=== PATIENT | male | born 1950 | race Caucasian/White ===

== ENCOUNTER 2016-11-16 18:10 | Emergency (ER) | payer MEDICARE, OTHER ==
--- NOTE | 2016-11-16 18:22 | EDM.PDOC ---
ED HPI GENERAL MEDICAL PROBLEM - General Chief Complaint: Lower Extremity Injury/Pain Stated Complaint: BRUISE ON LEG; HISTORY OF BLOODCLOT Time Seen by Provider: 11/16/16 18:25 Source of Information: Reports: Patient History Limitations: Reports: No Limitations - History of Present Illness INITIAL COMMENTS - FREE TEXT/NARRATIVE: 66-year-old male presents to the ED for evaluation of painful swelling along the greater saphenous vein distribution in his left mid thigh. He also has a 2 cm ecchymotic area mid thigh and he doesn't know how he got this. Of note the patient is at a previous DVT in his left leg felt to be caused from prolonged driving in a motor vehicle eye from [facility] to [place]. He was on Coumadin therefore for a period of about 6 weeks 2 years ago. At present he states he has pain only in the left medial thigh and he can feel nodularity along the distribution of the vein. He doesn't feel his left foot is any more swollen than it was normally. It is painful for his pants to touch the inner aspect of his left thigh. Denies any shortness of breath or pleuritic chest pain. No hemoptysis. Not known to have a PE with his last DVT. Onset: Today (Noted today.) Onset Date: 11/16/16 Onset Time: 16:00 Duration: Minutes: Location: Reports: Lower Extremity, Left (Left mid medial thigh) Quality: Reports: Ache, Throbbing, Other Severity: Moderate (Tender to touch.) Improves with: Reports: None Worsens with: Reports: Other Context: Reports: Other (Noted bruise in this area once he started exploring wire was sore. Unclear how the Chema developed). Denies: Activity (Walking especially with his pants rubbing on the area.), Exercise, Lifting, Sick Contact , Trauma Associated Symptoms: Reports: No Other Symptoms Treatments VINYL CUTTER: Reports: Other (see below) (None.) - Related Data Allergies Allergy/AdvReac Type Severity Reaction Status Date / Time alcohol Allergy Liver Verified 11/16/16 18:21 Problems Home Meds: Home Meds Aspirin [Halfprin] 81 mg PO DAILY 10/08/13 [History] atorvaSTATin [Lipitor] 10 mg PO DAILY 10/08/13 [History] Ubidecarenone [Co Q-10] 10 mg PO DAILY 03/27/14 [History] Ascorbic Acid [Vitamin C] 500 mg PO DAILY 05/12/14 [History] Calcium Carbonate/Vitamin D3 [Calcium 500-Vit D3 200 Tablet] 1 tab PO DAILY [History] Glucosamine Sulfate 2KCl [Glucosamine] 1 gm PO DAILY 05/12/14 [History] Hydrocodone/Acetaminophen [Dakota 5-325] 2 tab PO Q4H PRN #30 tablet 05/15/14 [Rx ] Past Medical History Cardiovascular History: Reports: Blood Clots/VTE/DVT (Left leg in the past.) Musculoskeletal History: Reports: Arthritis, Back Pain, Chronic, Osteoarthritis Social & Family History - Tobacco Use Smoking Status *Q: Never Smoker Years of Tobacco use: 7 Used Tobacco, but Quit: Yes Month Tobacco Last Used: 1976 Second Hand Smoke Exposure: No - Alcohol Use Days Per Week of Alcohol Use: 0 Number of Drinks Per Day: 0 Total Drinks Per Week: 0 - Recreational Drug Use Recreational Drug Use: No Drug Use in Last 12 Months: No - Living Situation & Occupation Living situation: Reports: Occupation: Employed Review of Systems - Review of Systems Review Of Systems: See Below Constitutional: Reports: No Symptoms Eyes: Reports: No Symptoms Ears: Reports: No Symptoms Nose: Reports: No Symptoms Mouth/Throat: Reports: No Symptoms Respiratory: Reports: No Symptoms Cardiovascular: Reports: No Symptoms GI/Abdominal: Reports: No Symptoms Genitourinary: Reports: No Symptoms Musculoskeletal: Reports: Other (Pain in her aspect of left thigh) Skin: Reports: Other (Ecchymoses) Neurological: Reports: No Symptoms ( 2 cm or 2.5 cm in diameter medial mid thigh of unclear etiology) Psychiatric: Reports: No Symptoms ED EXAM, GENERAL - Physical Exam Exam: See Below Exam Limited By: No Limitations General Appearance: Alert, WD/WN, No Apparent Distress, Anxious (Mildly anxious. ) Respiratory/Chest: No Respiratory Distress, Lungs Clear, Normal Breath Sounds, Chest Non-Tender Cardiovascular: Normal Peripheral Pulses, Regular Rate, Rhythm, No Edema, No Gallop, No Murmur Peripheral Pulses: 3+: Posterior Tibial (L), Posterior Tibial (R), Dorsalis Pedis (L), Dorsalis Pedis (R) GI/Abdominal: Normal Bowel Sounds, Soft, Non-Tender, No Organomegaly, No Distention Extremities: Other (Examination was essentially limited to the left lower extremity. He has a palpable greater saphenous vein along the medial aspect of his thigh. There is a 2.5 cm diameter ecchymotic area which appears to be a day or 2 old mid thigh. He's not sure how he obtained this. There is tender to touch. He's had previous DVT in the leg starting in the popliteal fossa and involving the peroneal and anterior tibial veins.) Neurological: Alert, Oriented (there was no inguinal adenopathy or tenderness.) , CN II-XII Intact, Normal Cognition, Normal Gait Psychiatric: Normal Affect, Normal Mood Skin Exam: Warm, Dry, Intact Course - Vital Signs Last Recorded V/S: Last Vital Signs Temp 36.1 C 11/16/16 18:25 Pulse 55 L 11/16/16 18:25 Resp 18 11/16/16 18:25 BP 150/103 H 11/16/16 18:25 Pulse Ox 100 11/16/16 18:25 - Orders/Labs/Meds Labs: Laboratory Tests 11/16/16 11/16/16 11/16/16 Range/Units 18:40 18:40 18:40 WBC 5.27 (4.23-9.07) K/mm3 RBC 5.01 (4.63-6.08) M/mm3 Hgb 15.4 (13.7-17.5) gm/L Hct 45.0 (40.1-51.0) % MCV 89.8 (79.0-92.2) fl MCH 30.7 (25.7-32.2) pg MCHC 34.2 (32.2-35.5) g/dl RDW Std Deviation 41.2 (35.1-43.9) fL Plt Count 267 (163-337) K/mm3 MPV 9.4 (9.4-12.3) fl Neut % (Auto) 59.9 (34.0-67.9) % Lymph % (Auto) 26.0 (21.8-53.1) % [place] % (Auto) 10.1 (5.3-12.2) % Eos % (Auto) 3.4 (0.8-7.0) Baso % (Auto) 0.4 (0.1-1.2) % Neut # (Auto) 3.16 (1.78-5.38) K/mm3 Lymph # (Auto) 1.37 (1.32-3.57) K/mm3 [place] # (Auto) 0.53 (0.30-0.82) K/mm3 Eos # (Auto) 0.18 (0.04-0.54) K/mm3 Baso # (Auto) 0.02 (0.01-0.08) K/mm3 PT 10.7 (8.0-13.0) SECONDS INR 0.98 D-Dimer, Quantitative 0.49 (0.19-0.59) mg/L - Radiology Interpretation Free Text/Narrative:: 66-year-old male presents the ED for evaluation of painful swelling along the distribution of the greater saphenous vein medial left thigh. Of note he had a previous DVT popliteal fossa and calf 2 years ago in the left thigh and was treated with a 6 week course of Coumadin. The thought was that he will want him driving with the leg in the same position from [facility] to [place] for work cause this DVT. He's not sure if any genetic studies were done at that time. Today he couldn't feel the soreness on the medial thigh against is patent leg and one elective Dilaudid 2.5 cm ecchymotic area mid thigh. Also pain along the distribution of the greater saphenous vein. He has some chronic edema in both lower extremities but little worse in the left as compared to the right. Good pulses to both feet. Plan routine labs to include PT/INR and a d-dimer. Doppler ultrasound to be done on the left lower extremity. - Re-Assessments/Exams Free Text/Narrative Re-Assessment/Exam: 11/16/16 19:36 lab work shows a normal white count at 5.27 hemoglobin is 15.4 hematocrit is 45.0. Platelets 267,000. PT is 10.7 INR 0.98 D dimer is normal at 0.49. Ultrasound of the leg has been completed on my review I do not see anything worrisome. Dr. Sawant is also read the ultrasound and did not find anything worrisome is particularly in the greater saphenous vein. He can see evidence of irregularity identified within the popliteal and peroneal vein due to previous thrombosis. She was therefore reassured at this time that no evidence of a DVT exists. Unclear how he got the bruise on the medial aspect of his thigh Departure - Departure Time of Disposition: 20:01 Disposition: Home, Self-Care 01 Condition: Fair Clinical Impression: Contusion of left thigh, initial encounter - Discharge Information Referrals: Justin Stover MD [Primary Care Provider] - Forms: ED Department Discharge Additional Instructions: Evaluation in the emergency room today in regards to a bruise on the medial aspect of your left thigh with some erythema and nodularity along the distribution of the greater saphenous vein. History of previous left-sided deep venous thrombosis in the lower extremity below the knee and popliteal fossa behind the knee. A repeat ultrasound of the leg was done today to rule out any new clot formation. None was found there is evidence of irregularity of the prado of the popliteal and peroneal vein low the knee on the left side which is due to previous thrombus which has recannulized. In particular the greater saphenous vein was stated and no clot was found within it. This supports lab test to which revealed a d-dimer which is a measuring stick for how much we are clotting or breaking down clot was normal as well. Therefore at this time no further treatment is advised or required.
[2016-11-16 18:28] VITALS: BP 150/103
--- NOTE | 2016-11-16 19:52 | US ---
Left lower extremity deep venous ultrasound: Duplex and color flow imaging was obtained of the left common femoral, proximal greater saphenous, superficial femoral, popliteal, posterior tibial and peroneal veins. Right common femoral vein was also evaluated. Findings: Normal phasic flow, augmentation and compression is seen. There is some wall irregularity identified within the popliteal and peroneal vein which is most likely due to previous thrombus which has recannulized. Impression: 1. No evidence of deep venous thrombosis is seen within the left lower extremity or within the right common femoral vein. Diagnostic code #2
== END 2016-11-16 20:07 | disposition home or self-care (01) ==
LOC: JD.ED 18:10
DX: S70.12XA Contusion of left thigh, initial encounter (principal); Z79.82 Long term (current) use of aspirin; Z79.899 Other long term (current) drug therapy; X50.1XXA Overexertion from prolonged static or awkward postures, initial encounter
CPT/HCPCS: 36415; 85025; 85379; 85610; 93971-26-LT; 93971-LT; 99284; 99284-25

== ENCOUNTER 2018-10-24 08:49 | Emergency (ER) | payer MEDICARE, OTHER ==
--- NOTE | 2018-10-24 09:36 | EDM.PDOC ---
ED HPI GENERAL MEDICAL PROBLEM - General Chief Complaint: Chest Pain Stated Complaint: CHEST PAIN AND DIZZY Time Seen by Provider: 10/24/18 09:25 - History of Present Illness INITIAL COMMENTS - FREE TEXT/NARRATIVE: 68-year-old male presents emergency room with chest discomfort but mostly dizziness. Yesterday the patient has had 2 brief twinges less than a second each of a sharp chest pain at the base of his chest. His biggest complaint is dizziness that is aggravated by change of position and occasionally turning but he cannot recall which way makes it worse. He does not have coronary artery history however is treated for hyperlipidemia he's had a blood clot in his leg no PE he took Coumadin for this. He used to take aspirin but stopped this because he had bloody noses related to this on a frequent basis. - Related Data Allergies Allergy/AdvReac Type Severity Reaction Status Date / Time alcohol Allergy Liver Verified 10/24/18 09:02 Problems Home Meds: Home Meds atorvaSTATin [Lipitor] 10 mg PO DAILY 10/08/13 [History] Ubidecarenone [Co Q-10] 10 mg PO DAILY 03/27/14 [History] Ascorbic Acid [Vitamin C] 500 mg PO DAILY 05/12/14 [History] Calcium Carbonate/Vitamin D3 [Calcium 500-Vit D3 200 Tablet] 1 tab PO DAILY [History] Glucosamine Sulfate 2KCl [Glucosamine] 1 gm PO DAILY 05/12/14 [History] Vitamin A Palmitate [Vitamin A] 1 tab PO DAILY 10/24/18 [History] Past Medical History HEENT History: Reports: Other (See Below) Other HEENT History: recurrent otitis media Cardiovascular History: Reports: Blood Clots/VTE/DVT, High Cholesterol Genitourinary History: Reports: BPH Musculoskeletal History: Reports: Arthritis, Back Pain, Chronic, Osteoarthritis Psychiatric History: Reports: Anxiety - Past Surgical History GI Surgical History: Reports: Appendectomy, Hernia, Abdominal Male Surgical History: Reports: Prostate Biopsy Musculoskeletal Surgical History: Reports: Arthroscopic Knee, Shoulder Surgery, Other (See Below) Other Musculoskeletal Surgeries/Procedures:: elbow surgery Oncologic Surgical History: Reports: Biopsy of Breast, Mastectomy Social & Family History - Family History Family Medical History: Noncontributory - Tobacco Use Smoking Status *Q: Never Smoker Second Hand Smoke Exposure: No - Caffeine Use Caffeine Use: Reports: None - Recreational Drug Use Recreational Drug Use: No - Living Situation & Occupation Living situation: Reports: Occupation: Employed ED ROS GENERAL - Review of Systems Review Of Systems: See Below Constitutional: Reports: No Symptoms. Denies: Fever, Chills HEENT: Reports: No Symptoms. Denies: Ear Discharge, Ear Pain, Rhinitis, Sinus Problem Respiratory: Reports: No Symptoms Cardiovascular: Reports: Other (Unusual chest pain as described above) GI/Abdominal: Reports: No Symptoms : Reports: No Symptoms Neurological: Reports: No Symptoms ED EXAM, GENERAL - Physical Exam Exam: See Below Exam Limited By: No Limitations General Appearance: Alert, No Apparent Distress Eye Exam: Bilateral Eye: Normal Inspection, PERRL Ears: Normal External Exam, Normal Canal, Hearing Grossly Normal, Normal TMs Nose: Normal Inspection, Normal Mucosa, No Blood Throat/Mouth: Normal Inspection, Normal Lips, Normal Teeth, Normal Gums, Normal Oropharynx, Normal Voice, No Airway Compromise, Other (Provocative measures do not make the dizziness come or go other than when he did stand up for his neuro exam he had brief lightheadedness) Head: Atraumatic, Normocephalic Neck: Normal Inspection, Supple, Non-Tender, Full Range of Motion. No: Lymphadenopathy (L), Lymphadenopathy (R) Respiratory/Chest: No Respiratory Distress, Lungs Clear, Normal Breath Sounds Cardiovascular: Normal Peripheral Pulses, Regular Rate, Rhythm, No Edema GI/Abdominal: Normal Bowel Sounds, Soft, Non-Tender, No Organomegaly, No Distention, No Abnormal Bruit, No Mass Neurological: Other (Cranial nerves II through XII grossly intact all muscle groups the upper lower extremities are equal and appropriate bilaterally deep tendon reflexes are equal and appropriate at brachial radialis and patella tendons bilaterally cerebellar testing is entirely within normal limits the patient had brief lightheadedness when he did stand up) Psychiatric: Normal Affect, Normal Mood Skin Exam: Warm, Dry, Intact, Normal Color Lymphatic: No Adenopathy Course - Vital Signs Last Recorded V/S: Last Vital Signs Temp 36.2 C 10/24/18 08:58 Pulse 67 10/24/18 08:58 Resp 16 10/24/18 08:58 BP 154/80 H 10/24/18 08:58 Pulse Ox 96 10/24/18 08:58 - Orders/Labs/Meds Orders: Active Orders 24 hr Category Date Time Status EKG Documentation Completion [RC] ASDIRECTED Care 10/24/18 09:33 Active EKG Documentation Completion [RC] STAT Care 10/24/18 12:04 Active EKG 12 Lead [EK] Stat Ther 10/24/18 09:03 Ordered Labs: Laboratory Tests 10/24/18 10/24/18 Range/Units 12:37 12:37 WBC 6.44 (4.23-9.07) K/mm3 RBC 5.20 (4.63-6.08) M/mm3 Hgb 16.0 (13.7-17.5) gm/L Hct 46.7 (40.1-51.0) % MCV 89.8 (79.0-92.2) fl MCH 30.8 (25.7-32.2) pg MCHC 34.3 (32.2-35.5) g/dl RDW Std Deviation 41.6 (35.1-43.9) fL Plt Count 221 (163-337) K/mm3 MPV 9.1 L (9.4-12.3) fl Neutrophils % (Manual) 74 H (40-60) % Band Neutrophils % 0 (0-10) % Lymphocytes % (Manual) 21 (20-40) % Atypical Lymphs % 0 % Monocytes % (Manual) 2 (2-10) % Eosinophils % (Manual) 3 (0.8-7.0) % Basophils % (Manual) 0 L (0.2-1.2) Platelet Estimate Adequate RBC Morph Comment Normal Sodium 144 (136-145) mEq/L Potassium 4.1 (3.5-5.1) mEq/L Chloride 108 H (98-107) mEq/L Carbon Dioxide 31 (21-32) mEq/L Anion Gap 9.1 (5-15) BUN 19 H (7-18) mg/dL Creatinine 1.1 (0.7-1.3) mg/dL Est Cr Clr Drug Dosing 68.59 mL/min Estimated GFR (MDRD) > 60 (>60) mL/min BUN/Creatinine Ratio 17.3 (14-18) Glucose 99 (80-115) mg/dL Calcium 9.2 (8.5-10.1) mg/dL Total Bilirubin 0.7 (0.2-1.0) mg/dL AST 22 (15-37) U/L ALT 42 (16-63) U/L Alkaline Phosphatase 48 (46-116) U/L Troponin I < 0.017 (0.00-0.056) ng/mL Total Protein 7.2 (6.4-8.2) g/dl Albumin 3.7 (3.4-5.0) g/dl Globulin 3.5 gm/dL Albumin/Globulin Ratio 1.1 (1-2) - Re-Assessments/Exams Free Text/Narrative Re-Assessment/Exam: Anticipating discharged when double check the patient and now he's developed some neck tightness and discomfort just at rest we'll check a troponin CBC CMP and repeat EKG 10/24/18 13:28 Labs look good the patient would like to go home she had a follow-up EKG shows a sinus bradycardia rate 50 patient states this is pretty normal for him this shows no obvious ischemia.. Labs negative troponin and labs are otherwise unrevealing. With his mild bradycardia discussed maybe checking a Holter but the patient is convinced this is normal for him. Departure - Departure Time of Disposition: 13:31 Disposition: Home, Self-Care 01 Clinical Impression: Chest pain - Discharge Information Referrals: Justin Stover MD [Primary Care Provider] - Forms: ED Department Discharge Additional Instructions: Return to the emergency room with any questions problems worsening symptoms. Follow-up with your regular physician early this next week. - My Orders Last 24 Hours: My Active Orders 10/24/18 09:03 EKG 12 Lead [EK] Stat 10/24/18 09:33 EKG Documentation Completion [RC] ASDIRECTED 10/24/18 12:04 EKG Documentation Completion [RC] STAT - Assessment/Plan Last 24 Hours: My Active Orders 10/24/18 09:03 EKG 12 Lead [EK] Stat 10/24/18 09:33 EKG Documentation Completion [RC] ASDIRECTED 10/24/18 12:04 EKG Documentation Completion [RC] STAT
[2018-10-24 13:59] VITALS: BP 142/86
== END 2018-10-24 14:06 | disposition home or self-care (01) ==
LOC: JD.ED 08:49
DX: R07.9 Chest pain, unspecified (principal); E78.00 Pure hypercholesterolemia, unspecified; Z86.718 Personal history of other venous thrombosis and embolism; Z79.01 Long term (current) use of anticoagulants; Z91.048 Other nonmedicinal substance allergy status
CPT/HCPCS: 36415; 80053; 84484; 85007; 85027; 93005; 93010; 99283; 99284-25

== ENCOUNTER 2020-03-10 16:37 | Emergency (ER) | payer MEDICARE, OTHER ==
[2020-03-10 16:54] VITALS: BP 155/81; PULSE 56
--- NOTE | 2020-03-10 17:19 | EDM.PDOC ---
ED HPI GENERAL MEDICAL PROBLEM - General Chief Complaint: Lower Extremity Injury/Pain Stated Complaint: PAIN BEHIND RT KNEE HX OF BLOOD CLOTS Time Seen by Provider: 03/10/20 16:42 Source of Information: Reports: Patient, RN Notes Reviewed History Limitations: Reports: No Limitations - History of Present Illness INITIAL COMMENTS - FREE TEXT/NARRATIVE: Patient is a 69-year-old male presenting to the emergency department with complaints of right popliteal knee pain. He states he was on his feet for an extended period of time yesterday. He started having right knee pain early this morning. This afternoon he had some tingling which is of concern to him. He does have a history of DVT in the left lower extremity approximately 10 years ago. He is not currently on blood thinners. Denies any chest pain or shortness of breath. Right Middle Leg Pain Score (Numeric/FACES): 5 - Related Data Allergies Allergy/AdvReac Type Severity Reaction Status Date / Time alcohol Allergy Liver Verified 03/10/20 16:47 Problems Home Meds: Home Meds atorvaSTATin [Lipitor] 10 mg PO DAILY 10/08/13 [History] Ubidecarenone [Co Q-10] 10 mg PO DAILY 03/27/14 [History] Ascorbic Acid [Vitamin C] 500 mg PO DAILY 05/12/14 [History] Calcium Carbonate/Vitamin D3 [Calcium 500-Vit D3 200 Tablet] 1 tab PO DAILY 05/12/14 [History] Glucosamine Sulfate Dipot Chlr [Glucosamine] 1 gm PO DAILY 05/12/14 [History] Vitamin A Palmitate [Vitamin A] 1 tab PO DAILY 10/24/18 [History] ALPRAZolam [Alprazolam] 0.5 mg PO BEDTIME PRN 03/10/20 [History] Rivaroxaban [Xarelto] 1 each PO ASDIRECTED #1 tab.ds.pk 03/10/20 [Rx] Selenium 0 mg PO DAILY 03/10/20 [History] Silvestrol 1 cap PO DAILY 03/10/20 [History] Past Medical History HEENT History: Reports: Otitis Media, Other (See Below) Other HEENT History: recurrent otitis media Cardiovascular History: Reports: Blood Clots/VTE/DVT, High Cholesterol, Other (See Below) Other Cardiovascular History: palpitations, wore Holter this past week. Respiratory History: Reports: Bronchitis, Recurrent Genitourinary History: Reports: BPH Musculoskeletal History: Reports: Arthritis, Back Pain, Chronic, Osteoarthritis Psychiatric History: Reports: Anxiety, Depression - Infectious Disease History Infectious Disease History: Reports: Chicken Pox, Measles, Mumps - Past Surgical History GI Surgical History: Reports: Appendectomy, Hernia, Abdominal Male Surgical History: Reports: Prostate Biopsy Musculoskeletal Surgical History: Reports: Arthroscopic Knee, Shoulder Surgery, Other (See Below) Other Musculoskeletal Surgeries/Procedures:: elbow surgery Oncologic Surgical History: Reports: Biopsy of Breast, Mastectomy Other Oncologic Surgeries/Procedures: benign breast tissue. Social & Family History - Family History Family Medical History: No Pertinent Family History - Tobacco Use Tobacco Use Status *Q: Never Tobacco User Second Hand Smoke Exposure: No - Caffeine Use Caffeine Use: Reports: None - Recreational Drug Use Recreational Drug Use: No - Living Situation & Occupation Living situation: Reports: Occupation: Employed Review of Systems - Review of Systems Review Of Systems: Comprehensive ROS is negative, except as noted in HPI. ED EXAM, GENERAL - Physical Exam Exam: See Below Exam Limited By: No Limitations General Appearance: Alert, WD/WN, No Apparent Distress Respiratory/Chest: No Respiratory Distress, Lungs Clear, Normal Breath Sounds, No Accessory Muscle Use, Chest Non-Tender Cardiovascular: Normal Peripheral Pulses, Regular Rate, Rhythm, No Edema, No Gallop, No JVD, No Murmur, No Rub Extremities: Other (Redness to palpation of the distal aspect of the right popliteal fossa. No redness, warmth, or swelling present. Positive Homans' sign.) Course - Vital Signs Last Recorded V/S: Last Vital Signs Temp 96.9 F 03/10/20 16:40 Pulse 56 L 03/10/20 16:40 Resp 16 03/10/20 16:40 BP 155/81 H 03/10/20 16:40 Pulse Ox 98 03/10/20 16:40 - Orders/Labs/Meds Meds: Medications Discontinued Medications Generic Name Dose Route Start Last Admin Trade Name Freq PRN Reason Stop Dose Admin Rivaroxaban 15 mg 03/10/20 18:30 03/10/20 18:42 Xarelto PO 03/10/20 18:31 15 mg ONETIME ONE Administration - Re-Assessments/Exams Free Text/Narrative Re-Assessment/Exam: Patient is a 69-year-old male presenting to the emergency department with complaints of right popliteal pain. States he was on his feet for extended period of time yesterday. This morning he developed pain and later this afternoon he noticed tingling in the area. He has a history of DVT so he is concerned that he could possibly have a blood clot. He is not currently on blood thinners. On exam, patient has tenderness to palpation of the distal aspect of the right popliteal fossa. There is no redness, warmth, or swelling. Positive Homans' sign. I ordered a venous Doppler ultrasound of the right lower extremity 03/10/20 18:31 Has Doppler ultrasound of the right lower extremity shows findings felt alysia tible with a nonobstructing clot within the posterior tibial vein. There is no additional deep venous thrombosis seen. We will start the patient on Xarelto. Discussed risk of bleeding and when to seek treatment. We will have him follow- up with his primary care provider next week. Discharge instructions as documented. Departure - Departure Time of Disposition: 18:31 Disposition: Home, Self-Care 01 Condition: Good Clinical Impression: DVT (deep venous thrombosis) Qualifiers: DVT location: lower extremity Affected thrombotic vein of extremity: tibial Chronicity: acute Laterality: right Qualified Code(s): I82.441 - Acute embolism and thrombosis of right tibial vein - Discharge Information *PRESCRIPTION DRUG MONITORING PROGRAM REVIEWED*: No *COPY OF PRESCRIPTION DRUG MONITORING REPORT IN PATIENT ROB: No Prescriptions: Rivaroxaban [Xarelto] 1 each PO ASDIRECTED #1 tab.ds.pk Instructions: Deep Vein Thrombosis Referrals: Justin Stover MD [Primary Care Provider] - Forms: ED Department Discharge Additional Instructions: You were seen in the emergency department today for pain and tingling behind your right knee. Ultrasound was completed and shows a nonobstructing blood clot within your posterior tibial vein. You have been started on Xarelto which is a blood thinner. Take these medications as prescribed. You received your first dose of medication in the emergency department tonight, therefore do not start taking your home prescription until tomorrow. Be aware of your risk of bleeding. If you should fall and have any head injuries, or develop nosebleed or any other bleeding which you cannot control, return to the emergency department. Recommend follow-up with your primary care provider next week so th at he may provide ongoing monitoring of your medication. If you should develop sudden onset of chest pain or shortness of breath, you should return to the emergency department. Return to ER for any new or worsening symptoms of concern. Sepsis Event Note (ED) - Evaluation Sepsis Screening Result: No Definite Risk - Focused Exam Vital Signs: Vital Signs Temp Pulse Resp BP Pulse Ox 03/10/20 16:40 96.9 F 56 L 16 155/81 H 98
--- NOTE | 2020-03-10 18:19 | US ---
Right lower extremity deep venous ultrasound: Duplex and color Doppler evaluation was obtained on the right common femoral, proximal greater saphenous, superficial femoral, popliteal, posterior tibial and peroneal veins. Left common femoral vein was also evaluated. Findings: Posterior tibial vein shows lack of complete compression. There is incomplete clot within the posterior tibial vein which is felt to be present. Clot does not extend into the popliteal vein. Other deep veins show normal phasic flow, augmentation and compression. Impression: 1. Findings felt compatible with nonobstructing clot within the posterior tibial vein. 2. No additional deep venous thrombosis is seen. Diagnostic code #5
[2020-03-10] MEDS ORDERED: Rivaroxaban 15 MG Tab PO ONE (18:30)
== END 2020-03-10 18:47 | disposition home or self-care (01) ==
LOC: JD.ED 16:37
DX: I82.441 Acute embolism and thrombosis of right tibial vein (principal); E78.00 Pure hypercholesterolemia, unspecified; Z91.048 Other nonmedicinal substance allergy status; Z79.899 Other long term (current) drug therapy
CPT/HCPCS: 93971; 99283; A9270

== ENCOUNTER 2020-03-12 12:49 | Emergency (ER) | payer MEDICARE, OTHER ==
[2020-03-12 12:59] VITALS: BP 149/76; PULSE 54
[2020-03-12] MEDS ORDERED: Sodium Chloride 0.9% 10 ML Syringe FLUSH PRN (13:19)
--- NOTE | 2020-03-12 13:24 | EDM.PDOC ---
ED HPI GENERAL MEDICAL PROBLEM - General Chief Complaint: Cardiovascular Problem Stated Complaint: HEART PALPITATIONS Time Seen by Provider: 03/12/20 13:12 Source of Information: Reports: Patient History Limitations: Reports: No Limitations - History of Present Illness INITIAL COMMENTS - FREE TEXT/NARRATIVE: 69-year-old male presents to the ED with chief complaint of recurrent p alpitations. He is well aware of the thud against his chest wall suggesting that these are premature atrial contractions with a compensatory pause. This is been going on now for the last month or so. He had a Holter monitor placed 2 days last week but he does not think he had many palpitations while he was on the monitor. Symptoms started once again yesterday. He is on numerous numerous herbal supplements of which he did not bring to the hospital. He denies any recent changes to any of his medications from his doctor. The palpitations do not seem to cause any chest pain, dyspnea, dizziness or lightheadedness. Because of a uncomfortable"thud "in his chest wall. Of note the patient is on Xarelto 20 mg once daily. Unclear reason for this. Onset: Other (Minimally particularly worse over the last 2 days but has had palpitations for the better part of a month) Onset Date: 02/10/20 Duration: Week(s):, Intermittent, Waxing/Waning Location: Reports: Chest (Potation's with she can feel in his chest.) Quality: Reports: Other (Denies any chest pain.) Severity: Mild Improves with: Reports: None Worsens with: Reports: None Context: Reports: Other (Spontaneous occurrence.). 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 (see below) (.) - Related Data Allergies Allergy/AdvReac Type Severity Reaction Status Date / Time alcohol Allergy Liver Verified 03/12/20 13:00 Problems Home Meds: Home Meds atorvaSTATin [Lipitor] 10 mg PO DAILY 10/08/13 [History] Ubidecarenone [Co Q-10] 10 mg PO DAILY 03/27/14 [History] Ascorbic Acid [Vitamin C] 500 mg PO DAILY 05/12/14 [History] Calcium Carbonate/Vitamin D3 [Calcium 500-Vit D3 200 Tablet] 1 tab PO DAILY 05/12/14 [History] Glucosamine Sulfate Dipot Chlr [Glucosamine] 1 gm PO DAILY 05/12/14 [History] Vitamin A Palmitate [Vitamin A] 1 tab PO DAILY 10/24/18 [History] ALPRAZolam [Alprazolam] 0.5 mg PO BEDTIME PRN 03/10/20 [History] Rivaroxaban [Xarelto] 1 each PO ASDIRECTED #1 tab.ds.pk 03/10/20 [Rx] Selenium 0 mg PO DAILY 03/10/20 [History] Silvestrol 1 cap PO DAILY 03/10/20 [History] Past Medical History HEENT History: Reports: Otitis Media, Other (See Below) Other HEENT History: recurrent otitis media Cardiovascular History: Reports: Blood Clots/VTE/DVT, High Cholesterol, Other (See Below) Other Cardiovascular History: palpitations, wore Holter this past week. Respiratory History: Reports: Bronchitis, Recurrent Genitourinary History: Reports: BPH Musculoskeletal History: Reports: Arthritis, Back Pain, Chronic, Osteoarthritis Psychiatric History: Reports: Anxiety, Depression Other Hematologic History: Previous DVT left calf. Recently diagnosed with a DVT in his right lower extremity March 10, 2020 and restarted on Xarelto 15 mg twice daily for the next 3 weeks and then switch to 20 mg daily. Is unclear whether genetic studies were ordered. - Infectious Disease History Infectious Disease History: Reports: Chicken Pox, Measles, Mumps - Past Surgical History GI Surgical History: Reports: Appendectomy, Hernia, Abdominal, Other (See Below) (She had an appendectomy and an umbilical hernia repair at the same setting.) Male Surgical History: Reports: Prostate Biopsy Musculoskeletal Surgical History: Reports: Arthroscopic Knee, Shoulder Surgery, Other (See Below) Other Musculoskeletal Surgeries/Procedures:: elbow surgery Oncologic Surgical History: Reports: Biopsy of Breast, Mastectomy Other Oncologic Surgeries/Procedures: benign breast tissue. Social & Family History - Family History Family Medical History: No Pertinent Family History - Tobacco Use Tobacco Use Status *Q: Former Tobacco User (Did 1977. Smoked 1 pack a day for about 7 years) Tobacco Use Within Last Twelve Months: Cigarettes - Caffeine Use Caffeine Use: Reports: None - Recreational Drug Use Recreational Drug Use: No - Living Situation & Occupation Living situation: Reports: Occupation: Employed ED ROS GENERAL - Review of Systems Review Of Systems: See Below Constitutional: Denies: Fever, Chills, Malaise, Weakness, Fatigue, Decreased Appetite, Weight Loss HEENT: Reports: Glasses Respiratory: Reports: No Symptoms Cardiovascular: Reports: Palpitations. Denies: Chest Pain, Blood Pressure Problem, Claudication, Dyspnea on Exertion, Edema, Lightheadedness, Orthopnea ED EXAM, GENERAL - Physical Exam Exam: See Below Exam Limited By: No Limitations General Appearance: Alert, WD/WN, Anxious (Mildly anxious), Other (Temperature is 36.5 heart rate was sinus bradycardia 54 to 57/min. Respiratory was 14 with O2 sats of 95% room air BP 149/76) Eye Exam: Bilateral Eye: Normal Inspection (No scleral icterus or blepharal pallor.), PERRL Ears: Normal TMs Throat/Mouth: Normal Inspection, Normal Lips, Normal Teeth, Normal Gums, Normal Oropharynx Head: Atraumatic, Normocephalic Neck: Normal Inspection, Supple, Non-Tender, Full Range of Motion. No: Carotid Bruit, Lymphadenopathy (L), Lymphadenopathy (R), Thyromegaly Respiratory/Chest: No Respiratory Distress, Lungs Clear, Normal Breath Sounds, No Accessory Muscle Use, Rales (New fine rales left lung base that clear with deep inspiration. This suggest atelectasis.) Cardiovascular: Normal Peripheral Pulses, Regular Rate, Rhythm, No Edema, No Gallop, No JVD, No Murmur, No Rub Peripheral Pulses: 2+: Carotid (L), Carotid (R), Posterior Tibial (L), Posterior Tibial (R), Dorsalis Pedis (L), Dorsalis Pedis (R) GI/Abdominal: Normal Bowel Sounds, Soft, Non-Tender, No Organomegaly, No Mass, Pelvis Stable, Rebound, Other (Minutes of previous umbilical hernia raphe.) Back Exam: Normal Inspection, Full Range of Motion. No: CVA Tenderness (L), CVA Tenderness (R) Extremities: Normal Inspection, Normal Range of Motion, Non-Tender, No Pedal Edema, Normal Capillary Refill, Other (There is no dependent edema in either extremity. The right leg is very minimally tender in the midline on firm palpation in the muscles of the legs are easily squeeze able. No clinical evidence of DVT right leg at this time) Neurological: Alert, Oriented, CN II-XII Intact, Normal Cognition, Normal Gait Psychiatric: Normal Affect, Normal Mood Skin Exam: Warm, Dry, Intact, Normal Color, No Rash #1 Interpretation EKG Date: 03/12/20 Time: 13:36 Rhythm: Other Rate (Beats/Min): 56 Maxie: LAD-Left Maxie Deviation (Left axis deviation -50 degrees) P-Wave: Enlarged (Letter left atrial hypertrophy) QRS: Other (Left anterior fascicular block pattern early R wave transition V2 consider right ventricular hypertrophy) ST-T: Other (T wave flattening in leads III and aVF nonspecific pattern) QT: Normal EKG Interpretation Comments: Borderline ECG Course - Vital Signs Last Recorded V/S: Last Vital Signs Temp 36.5 C 03/12/20 12:55 Pulse 54 L 03/12/20 12:55 Resp 14 03/12/20 12:55 BP 149/76 H 03/12/20 12:55 Pulse Ox 94 L 03/12/20 12:55 - Orders/Labs/Meds Orders: Active Orders 24 hr Category Date Time Status EKG Documentation Completion [RC] STAT Care 03/12/20 13:21 Active Peripheral IV Care [RC] . DIRECTED Care 03/12/20 13:20 Active Sodium Chloride 0.9% [Saline Flush] Med 03/12/20 13:19 Active 10 ml FLUSH ASDIRECTED PRN Peripheral IV Insertion Adult [OM.PC] Stat Oth 03/12/20 13:19 Ordered Medication Orders Sodium Chloride (Saline Flush) 10 ml FLUSH ASDIRECTED PRN PRN Reason: Keep Vein Open Labs: Laboratory Tests 03/12/20 03/12/20 03/12/20 Range/Units 13:43 13:43 13:43 WBC 5.48 (4.23-9.07) K/mm3 RBC 4.95 (4.63-6.08) M/mm3 Hgb 15.3 (13.7-17.5) gm/dl Hct 45.3 (40.1-51.0) % MCV 91.5 (79.0-92.2) fl MCH 30.9 (25.7-32.2) pg MCHC 33.8 (32.2-35.5) g/dl RDW Std Deviation 40.4 (35.1-43.9) fL Plt Count 233 (163-337) K/mm3 MPV 9.4 (9.4-12.3) fl Neut % (Auto) 62.4 (34.0-67.9) % Lymph % (Auto) 24.8 (21.8-53.1) % [place] % (Auto) 9.5 (5.3-12.2) % Eos % (Auto) 2.7 (0.8-7.0) Baso % (Auto) 0.4 (0.1-1.2) % Neut # (Auto) 3.42 (1.78-5.38) K/mm3 Lymph # (Auto) 1.36 (1.32-3.57) K/mm3 [place] # (Auto) 0.52 (0.30-0.82) K/mm3 Eos # (Auto) 0.15 (0.04-0.54) K/mm3 Baso # (Auto) 0.02 (0.01-0.08) K/mm3 PT 12.0 (9.7-12.0) SECONDS INR 1.12 APTT 34.2 H (21.7-31.4) SECONDS D-Dimer, Quantitative 0.35 (0.19-0.50) mg/L Sodium 143 (136-145) mEq/L Potassium 3.8 (3.5-5.1) mEq/L Chloride 106 (98-107) mEq/L Carbon Dioxide 28 (21-32) mEq/L Anion Gap 12.8 (5-15) BUN 19 H (7-18) mg/dL Creatinine 1.1 (0.7-1.3) mg/dL Est Cr Clr Drug Dosing 67.61 mL/min Estimated GFR (MDRD) > 60 (>60) mL/min BUN/Creatinine Ratio 17.3 (14-18) Glucose 119 H (83-115) mg/dL Calcium 9.1 (8.5-10.1) mg/dL Magnesium 2.3 (1.8-2.4) mg/dl Total Bilirubin 0.4 (0.2-1.0) mg/dL AST 21 (15-37) U/L ALT 32 (16-63) U/L Alkaline Phosphatase 48 (46-116) U/L CK-MB (CK-2) 1.3 (0-3.6) ng/ml Troponin I < 0.017 (0.00-0.056) ng/mL C-Reactive Protein <0.2 (<1.0) mg/dL NT-Pro-B Natriuret Pep (0-125) pg/mL Total Protein 6.9 (6.4-8.2) g/dl Albumin 3.7 (3.4-5.0) g/dl Globulin 3.2 gm/dL Albumin/Globulin Ratio 1.2 (1-2) TSH 3rd Generation (0.358-3.74) uIU/mL 03/12/20 03/12/20 Range/Units 13:43 13:43 WBC (4.23-9.07) K/mm3 RBC (4.63-6.08) M/mm3 Hgb (13.7-17.5) gm/dl Hct (40.1-51.0) % MCV (79.0-92.2) fl MCH (25.7-32.2) pg MCHC (32.2-35.5) g/dl RDW Std Deviation (35.1-43.9) fL Plt Count (163-337) K/mm3 MPV (9.4-12.3) fl Neut % (Auto) (34.0-67.9) % Lymph % (Auto) (21.8-53.1) % Dod[place] % (Auto) (5.3-12.2) % Eos % (Auto) (0.8-7.0) Baso % (Auto) (0.1-1.2) % Neut # (Auto) (1.78-5.38) K/mm3 Lymph # (Auto) (1.32-3.57) K/mm3 [place]idge # (Auto) (0.30-0.82) K/mm3 Eos # (Auto) (0.04-0.54) K/mm3 Baso # (Auto) (0.01-0.08) K/mm3 PT (9.7-12.0) SECONDS INR APTT (21.7-31.4) SECONDS D-Dimer, Quantitative (0.19-0.50) mg/L Sodium (136-145) mEq/L Potassium (3.5-5.1) mEq/L Chloride (98-107) mEq/L Carbon Dioxide (21-32) mEq/L Anion Gap (5-15) BUN (7-18) mg/dL Creatinine (0.7-1.3) mg/dL Est Cr Clr Drug Dosing mL/min Estimated GFR (MDRD) (>60) mL/min BUN/Creatinine Ratio (14-18) Glucose (83-115) mg/dL Calcium (8.5-10.1) mg/dL Magnesium (1.8-2.4) mg/dl Total Bilirubin (0.2-1.0) mg/dL AST (15-37) U/L ALT (16-63) U/L Alkaline Phosphatase (46-116) U/L CK-MB (CK-2) (0-3.6) ng/ml Troponin I (0.00-0.056) ng/mL C-Reactive Protein (<1.0) mg/dL NT-Pro-B Natriuret Pep 33 (0-125) pg/mL Total Protein (6.4-8.2) g/dl Albumin (3.4-5.0) g/dl Globulin gm/dL Albumin/Globulin Ratio (1-2) TSH 3rd Generation 2.423 (0.358-3.74) uIU/mL Meds: Medications Generic Name Dose Route Start Last Admin Trade Name Freq PRN Reason Stop Dose Admin Sodium Chloride 10 ml 03/12/20 13:19 Saline Flush FLUSH ASDIRECTED PRN Keep Vein Open - Radiology Interpretation Free Text/Narrative:: 69-year-old male presents to the ED for evaluation of recurrent palpitations that he has been experiencing off and on for the last month. He did have a Holter monitor placed last week but while he was on for 48 hours he really did not experience any significant palpitations. Palpitations seem to start up again yesterday and he is well aware of them as they cause a thud against his chest wall suggesting a premature atrial contraction with a compensatory pause. They do not cause dizziness chest pain shortness of breath or any other symptoms other than anxiety. He states he has a sinus bradycardia his heart rate is usually around 57 to 58/min. No recent changes to any of his medications. Of note he does admit to using many [id number] preparations of which he does not remember the name of and should be brought to his doctor on next visit to see if there is something there that is causing the palpitations. At present they appear by history to be benign. Plan he will stay on the bus monitor while in the ED. Routine labs including thyroid function to be obtained. - Re-Assessments/Exams Free Text/Narrative Re-Assessment/Exam: 03/12/20 14:11Hematology is back. Reveals a normal white count at 5.48. The auto differential shows 62% neutrophils. Hemoglobin is 15.3 with hematocrit of 45.3. Platelet count 233,000. Chest x-ray done portably reveals no cardiomegally. Slightly tortuous thoracic aorta. Lungs are clear with no pleural effusions or pneumothorax. No evidence of diffuse vascular congestion Free Text/Narrative Re-Assessment/Exam: 03/12/20 15:06 PT is 12.0 with an INR of 1.12. PTT is 34.2. D-dimer is normal at 0.35. Sodium is 143 with a potassium of 3.8 chloride 106 with a bicarb of 28. Anion gap is 12.8. BUN is 19 with a creatinine of 1.1 and a GFR greater than 60. Glucose is 119. Calcium is 9.1 with a magnesium of 2.3. Liver function is normal. CK-MB fraction is 1.3 troponin I is less than 0.017. C-reactive protein is less than 0.2. BNP is 33. TSH is 2.423. Normal total protein 6.9 with an albumin fraction of 3.7. Patient was appraised of the results and advised that the only few skips that I could identify were premature atrial contractions which are considered benign. He is advised to restrict his activities for another 8 days due to recent DVT finding in his right calf. After this he may resume all regular activities. Of note he has had a previous DVT in his left lower extremity which means he likely has a genetic predisposition to developing blood clots. He should be considered a candidate to stay on blood thinners the rest of his life. Departure - Departure Time of Disposition: 15:15 Disposition: Home, Self-Care 01 Reason for Transfer *Q: Other Condition: Good Clinical Impression: Intermittent palpitations DVT (deep venous thrombosis) Qualifiers: DVT location: lower extremity Affected thrombotic vein of extremity: tibial Chronicity: acute Laterality: right Qualified Code(s): I82.441 - Acute embolism and thrombosis of right tibial vein Instructions: Palpitations, [id number], Deep Vein Thrombosis Referrals: Justin Stover MD [Primary Care Provider] - Forms: ED Department Discharge Additional Instructions: Evaluation in the emergency room today in regards to you identifying frequent palpitations this morning. This is been going on off and on for the last couple of days. Perhaps more noticeable since recent DVT identified in your right calf 2 days ago. All test done through the ED today including chest x-ray, ECG and lab tests revealed no abnormalities including a normal D-dimer today. The suggest that no further clotting is going on at this time. There was no signs of heart related illness and no electrolyte imbalance with normal serum potassium, calcium and magnesium levels. Thyroid gland function is also normal. I only seen 3 extra beats on the monitor while you were here for over an hour and these were all premature atrial contractions which are benign and considered a nuisance. After another 8 days she would not have to limit any of your activities as the DVT in your right lower extremity will have started to breakdown and dissolve. Follow-up with Dr. Gallagher in clinic about your Holter monitor results in last week as planned. Sepsis Event Note (ED) - Evaluation Sepsis Screening Result: No Definite Risk - Focused Exam Vital Signs: Vital Signs Temp Pulse Resp BP Pulse Ox 03/12/20 12:55 36.5 C 54 L 14 149/76 H 94 L - My Orders Last 24 Hours: My Active Orders 03/12/20 13:19 Sodium Chloride 0.9% [Saline Flush] 10 ml FLUSH ASDIRECTED PRN Peripheral IV Insertion Adult [OM.PC] Stat 03/12/20 13:20 Peripheral IV Care [RC] . DIRECTED 03/12/20 13:21 EKG Documentation Completion [RC] STAT - Assessment/Plan Last 24 Hours: My Active Orders 03/12/20 13:19 Sodium Chloride 0.9% [Saline Flush] 10 ml FLUSH ASDIRECTED PRN Peripheral IV Insertion Adult [OM.PC] Stat 03/12/20 13:20 Peripheral IV Care [RC] . DIRECTED 03/12/20 13:21 EKG Documentation Completion [RC] STAT
--- NOTE | 2020-03-12 14:16 | CR ---
Chest: Portable view of the chest was obtained. Comparison: No prior chest imaging is available. Heart size and mediastinum are normal. Lungs are clear with no acute parenchymal change. Bony structures are grossly intact. Impression: 1. Nothing acute is seen on portable chest x-ray. Diagnostic code #1
== END 2020-03-12 15:25 | disposition home or self-care (01) ==
LOC: JD.ED 12:49
DX: R00.2 Palpitations (principal); I82.441 Acute embolism and thrombosis of right tibial vein; E78.00 Pure hypercholesterolemia, unspecified; Z87.891 Personal history of nicotine dependence; Z91.048 Other nonmedicinal substance allergy status; Z79.899 Other long term (current) drug therapy
CPT/HCPCS: 36415; 71045; 71045-26; 80053; 82553; 83735; 83880; 84443; 84484; 85025; 85379; 85610; 85730; 86140; 93005; 93010; 99284; 99285-25

== ENCOUNTER 2020-08-02 08:19 | Emergency (ER) | payer MEDICARE, OTHER ==
[2020-08-02 08:31] VITALS: BP 146/75; PULSE 54
[2020-08-02] MEDS ORDERED: Sodium Chloride 0.9% 10 ML Syringe FLUSH PRN ×2 (08:37→09:43)
[2020-08-02] MEDS ORDERED: Iopamidol 755 Mg/ML 100 ML Bottle IVPUSH ONE ×2 (08:48→09:43)
[2020-08-02] MEDS ORDERED: Sodium Chloride 0.9% 10 ML Syringe FLUSH ONE (08:48)
[2020-08-02] MEDS ORDERED: Sodium Chloride 0.9% 100 ML IV SCH ×2 (09:00→09:45)
--- NOTE | 2020-08-02 09:04 | EDM.PDOC ---
ED HPI GENERAL MEDICAL PROBLEM - General Chief Complaint: Respiratory Problem Stated Complaint: COUGHING UP BLOOD Time Seen by Provider: 08/02/20 08:31 Source of Information: Reports: Patient History Limitations: Reports: No Limitations - History of Present Illness INITIAL COMMENTS - FREE TEXT/NARRATIVE: The patient presents because he was coughing up blood. He said he started coughing this morning. He noticed some blood in his sputum and then he did cough up a clot. He had a DVT months ago and was taken off of xarelto in April. He has no fever, chills, chest pain, shortness of breath, abdominal pain, nausea or vomiting. He has no pain or swelling in his legs. He has a history of bronchitis. He has no history of heart disease. He has a history of hypercholesterolemia. He quit smoking back in 1976. He has a little sore throat from the coughing. Onset: Gradual Duration: Hour(s): Severity: Moderate Improves with: Reports: None Worsens with: Reports: None Associated Symptoms: Reports: Cough. Denies: Chest Pain, Fever/Chills, Headaches, Nausea/Vomiting, Shortness of Breath - Related Data Allergies Allergy/AdvReac Type Severity Reaction Status Date / Time alcohol AdvReac Liver Verified 08/02/20 10:36 Problems Home Meds: Home Meds atorvaSTATin [Lipitor] 10 mg PO DAILY 10/08/13 [History] Ubidecarenone [Co Q-10] 10 mg PO DAILY 03/27/14 [History] Ascorbic Acid [Vitamin C] 500 mg PO DAILY 05/12/14 [History] Calcium Carbonate/Vitamin D3 [Calcium 500-Vit D3 200 Tablet] 1 tab PO DAILY 05/12/14 [History] Glucosamine Sulfate Dipot Chlr [Glucosamine] 1 gm PO DAILY 05/12/14 [History] Vitamin A Palmitate [Vitamin A] 1 tab PO DAILY 10/24/18 [History] ALPRAZolam [Alprazolam] 0.5 mg PO BEDTIME PRN 03/10/20 [History] Rivaroxaban [Xarelto] 1 each PO ASDIRECTED #1 tab.ds.pk 03/10/20 [Rx] Selenium 0 mg PO DAILY 03/10/20 [History] Silvestrol 1 cap PO DAILY 03/10/20 [History] Past Medical History HEENT History: Reports: Hard of Hearing, Impaired Vision, Otitis Media, Other (See Below) Other HEENT History: recurrent otitis media Cardiovascular History: Reports: Blood Clots/VTE/DVT, High Cholesterol, Other (See Below) Other Cardiovascular History: palpitations, Respiratory History: Reports: Bronchitis, Recurrent Genitourinary History: Reports: BPH Musculoskeletal History: Reports: Arthritis, Back Pain, Chronic, Osteoarthritis Psychiatric History: Reports: Anxiety, Depression Other Hematologic History: Previous DVT left calf. Recently diagnosed with a DVT in his right lower extremity March 10, 2020 and restarted on Xarelto 15 mg twice daily for the next 3 weeks and then switch to 20 mg daily. Is unclear whether genetic studies were ordered. - Infectious Disease History Infectious Disease History: Reports: Chicken Pox, Measles, Mumps - Past Surgical History GI Surgical History: Reports: Appendectomy, Hernia, Abdominal, Other (See Below) Male Surgical History: Reports: Prostate Biopsy Musculoskeletal Surgical History: Reports: Arthroscopic Knee, Shoulder Surgery, Other (See Below) Other Musculoskeletal Surgeries/Procedures:: elbow surgery Oncologic Surgical History: Reports: Biopsy of Breast, Mastectomy Other Oncologic Surgeries/Procedures: benign breast tissue. Social & Family History - Family History Family Medical History: No Pertinent Family History - Tobacco Use Tobacco Use Status *Q: Never Tobacco User - Caffeine Use Caffeine Use: Reports: Coffee - Recreational Drug Use Recreational Drug Use: No - Living Situation & Occupation Living situation: Reports: Occupation: Employed ED ROS GENERAL - Review of Systems Review Of Systems: See Below Constitutional: Reports: No Symptoms HEENT: Reports: No Symptoms Respiratory: Reports: Cough. Denies: Shortness of Breath Cardiovascular: Reports: No Symptoms Endocrine: Reports: No Symptoms GI/Abdominal: Reports: No Symptoms : Reports: No Symptoms Musculoskeletal: Reports: No Symptoms Skin: Reports: No Symptoms ED EXAM, GENERAL - Physical Exam Exam: See Below Exam Limited By: No Limitations General Appearance: Alert, No Apparent Distress Ears: Normal External Exam Nose: Normal Inspection Head: Atraumatic, Normocephalic Neck: Normal Inspection Respiratory/Chest: No Respiratory Distress, Lungs Clear, Normal Breath Sounds Cardiovascular: Regular Rate, Rhythm, No Edema, No Murmur GI/Abdominal: Soft, Non-Tender, No Organomegaly, No Mass Back Exam: Normal Inspection Extremities: Normal Inspection Neurological: Alert, Oriented, No Motor/Sensory Deficits #1 Interpretation EKG Date: 08/02/20 Time: 08:25 Rhythm: Other (sinus bradycardia) Rate (Beats/Min): 53 Kane: LAD-Left Kane Deviation P-Wave: Present QRS: Normal ST-T: Normal QT: Normal Course - Vital Signs Last Recorded V/S: Last Vital Signs Temp 96.9 F 08/02/20 08:30 Pulse 54 L 08/02/20 08:30 Resp 12 08/02/20 08:30 BP 146/75 H 08/02/20 08:30 Pulse Ox 95 08/02/20 08:30 - Orders/Labs/Meds Orders: Active Orders 24 hr Category Date Time Status Cardiac Monitoring [RC] . DIRECTED Care 08/02/20 08:37 Active EKG Documentation Completion [RC] STAT Care 08/02/20 08:37 Active Peripheral IV Care [RC] . DIRECTED Care 08/02/20 08:38 Active Sodium Chloride 0.9% [Normal Saline] 100 ml Med 08/02/20 09:45 Active IV ASDIRECTED Sodium Chloride 0.9% [Saline Flush] Med 08/02/20 08:37 Active 10 ml FLUSH ASDIRECTED PRN Sodium Chloride 0.9% [Saline Flush] Med 08/02/20 09:43 Active 10 ml FLUSH ONETIME PRN Peripheral IV Insertion Adult [OM.PC] Stat Oth 08/02/20 08:37 Ordered Medication Orders Sodium Chloride (Normal Saline) 100 mls @ 75 mls/hr IV ASDIRECTED ZINA Last Admin: 08/02/20 10:34 Dose: 75 mls/hr Documented by: ISRAEL Sodium Chloride (Sodium Chloride 0.9% 10 Ml Syringe) 10 ml FLUSH ASDIRECTED PRN PRN Reason: Keep Vein Open Sodium Chloride (Sodium Chloride 0.9% 10 Ml Syringe) 10 ml FLUSH ONETIME PRN PRN Reason: IV FLUSH Last Admin: 08/02/20 10:34 Dose: 10 ml Documented by: ISRAEL Labs: Laboratory Tests 08/02/20 08/02/20 08/02/20 Range/Units 08:41 08:41 08:41 WBC 4.98 (4.23-9.07) K/mm3 RBC 5.10 (4.63-6.08) M/mm3 Hgb 15.7 (13.7-17.5) gm/dl Hct 46.9 (40.1-51.0) % MCV 92.0 (79.0-92.2) fl MCH 30.8 (25.7-32.2) pg MCHC 33.5 (32.2-35.5) g/dl RDW Std Deviation 41.6 (35.1-43.9) fL Plt Count 240 (163-337) K/mm3 MPV 9.4 (9.4-12.3) fl Neut % (Auto) 54.7 (34.0-67.9) % Lymph % (Auto) 32.3 (21.8-53.1) % Parke % (Auto) 9.4 (5.3-12.2) % Eos % (Auto) 3.2 (0.8-7.0) Baso % (Auto) 0.2 (0.1-1.2) % Neut # (Auto) 2.72 (1.78-5.38) K/mm3 Lymph # (Auto) 1.61 (1.32-3.57) K/mm3 Parke # (Auto) 0.47 (0.30-0.82) K/mm3 Eos # (Auto) 0.16 (0.04-0.54) K/mm3 Baso # (Auto) 0.01 (0.01-0.08) K/mm3 PT 10.9 (9.7-12.0) SECONDS INR 1.02 APTT 27.9 (21.7-31.4) SECONDS D-Dimer, Quantitative 0.81 H (0.19-0.50) mg/L Sodium 141 (136-145) mEq/L Potassium 3.6 (3.5-5.1) mEq/L Chloride 106 (98-107) mEq/L Carbon Dioxide 26 (21-32) mEq/L Anion Gap 12.6 (5-15) BUN 20 H (7-18) mg/dL Creatinine 1.2 (0.7-1.3) mg/dL Est Cr Clr Drug Dosing 61.97 mL/min Estimated GFR (MDRD) 60 (>60) mL/min BUN/Creatinine Ratio 16.7 (14-18) Glucose 127 H (70-99) mg/dL Calcium 8.8 (8.5-10.1) mg/dL Total Bilirubin 1.0 (0.2-1.0) mg/dL AST 30 (15-37) U/L ALT 50 (16-63) U/L Alkaline Phosphatase 49 (46-116) U/L Troponin I < 0.017 (0.00-0.056) ng/mL C-Reactive Protein < 0.2 (<1.0) mg/dL Total Protein 7.1 (6.4-8.2) g/dl Albumin 3.8 (3.4-5.0) g/dl Globulin 3.3 gm/dL Albumin/Globulin Ratio 1.2 (1-2) SARS-CoV-2 RNA (FREYA) (NEGATIVE) 08/02/20 Range/Units 09:21 WBC (4.23-9.07) K/mm3 RBC (4.63-6.08) M/mm3 Hgb (13.7-17.5) gm/dl Hct (40.1-51.0) % MCV (79.0-92.2) fl MCH (25.7-32.2) pg MCHC (32.2-35.5) g/dl RDW Std Deviation (35.1-43.9) fL Plt Count (163-337) K/mm3 MPV (9.4-12.3) fl Neut % (Auto) (34.0-67.9) % Lymph % (Auto) (21.8-53.1) % Parke % (Auto) (5.3-12.2) % Eos % (Auto) (0.8-7.0) Baso % (Auto) (0.1-1.2) % Neut # (Auto) (1.78-5.38) K/mm3 Lymph # (Auto) (1.32-3.57) K/mm3 Parke # (Auto) (0.30-0.82) K/mm3 Eos # (Auto) (0.04-0.54) K/mm3 Baso # (Auto) (0.01-0.08) K/mm3 PT (9.7-12.0) SECONDS INR APTT (21.7-31.4) SECONDS D-Dimer, Quantitative (0.19-0.50) mg/L Sodium (136-145) mEq/L Potassium (3.5-5.1) mEq/L Chloride (98-107) mEq/L Carbon Dioxide (21-32) mEq/L Anion Gap (5-15) BUN (7-18) mg/dL Creatinine (0.7-1.3) mg/dL Est Cr Clr Drug Dosing mL/min Estimated GFR (MDRD) (>60) mL/min BUN/Creatinine Ratio (14-18) Glucose (70-99) mg/dL Calcium (8.5-10.1) mg/dL Total Bilirubin (0.2-1.0) mg/dL AST (15-37) U/L ALT (16-63) U/L Alkaline Phosphatase (46-116) U/L Troponin I (0.00-0.056) ng/mL C-Reactive Protein (<1.0) mg/dL Total Protein (6.4-8.2) g/dl Albumin (3.4-5.0) g/dl Globulin gm/dL Albumin/Globulin Ratio (1-2) SARS-CoV-2 RNA (FREYA) Negative (NEGATIVE) Meds: Medications Generic Name Dose Route Start Last Admin Trade Name Freq PRN Reason Stop Dose Admin Sodium Chloride 100 mls @ 75 mls/hr 08/02/20 09:45 08/02/20 10:34 Normal Saline IV 75 mls/hr ASDIRECTED ZINA Administration Sodium Chloride 10 ml 08/02/20 08:37 Sodium Chloride 0.9% 10 Ml Syringe FLUSH ASDIRECTED PRN Keep Vein Open Sodium Chloride 10 ml 08/02/20 09:43 08/02/20 10:34 Sodium Chloride 0.9% 10 Ml Syringe FLUSH 10 ml ONETIME PRN Administration IV FLUSH Discontinued Medications Generic Name Dose Route Start Last Admin Trade Name Freq PRN Reason Stop Dose Admin Sodium Chloride 100 mls @ 60 mls/hr 08/02/20 09:00 Normal Saline IV ASDIRECTED ZINA Iopamidol 100 ml 08/02/20 08:48 Iopamidol 755 Mg/Ml 100 Ml Bottle IVPUSH 08/02/20 08:49 ONETIME ONE Iopamidol 100 ml 08/02/20 09:43 08/02/20 10:34 Iopamidol 755 Mg/Ml 100 Ml Bottle IVPUSH 08/02/20 09:44 100 ml ONETIME ONE Administration Sodium Chloride 10 ml 08/02/20 08:48 Sodium Chloride 0.9% 10 Ml Syringe FLUSH 08/02/20 08:49 ONETIME ONE - Re-Assessments/Exams Free Text/Narrative Re-Assessment/Exam: 08/02/20 09:11 I ordered an IV saline lock, EKG, chest CT and labs. His EKG shows a sinus bradycardia with no acute changes. 08/02/20 10:54 His CBC looks good. His D-dimer was elevated at 0.81. His CMP looks good. His troponin is negative. His CRP is negative. His COVID [address] of his chest shows no PE and no reason for the hemoptysis. I feel he may have had some bleeding in his upper airway that caused this. I will discharge him home and follow up with his doctor. Departure - Departure Time of Disposition: 11:00 Disposition: Home, Self-Care 01 Condition: Good Clinical Impression: Hemoptysis - Discharge Information *PRESCRIPTION DRUG MONITORING PROGRAM REVIEWED*: Not Applicable *COPY OF PRESCRIPTION DRUG MONITORING REPORT IN PATIENT ROB: Not Applicable Referrals: Justin Stover MD [Primary Care Provider] - 1 Week Forms: ED Department Discharge Additional Instructions: Take your medications as prescribed. Follow up with Dr Gallagher within a week. Please return if you are worse. Sepsis Event Note (ED) - Evaluation Sepsis Screening Result: No Definite Risk - Focused Exam Vital Signs: Vital Signs Temp Pulse Resp BP Pulse Ox 08/02/20 08:30 96.9 F 54 L 12 146/75 H 95 - My Orders Last 24 Hours: My Active Orders 08/02/20 08:37 Cardiac Monitoring [RC] . DIRECTED EKG Documentation Completion [RC] STAT Sodium Chloride 0.9% [Saline Flush] 10 ml FLUSH ASDIRECTED PRN Peripheral IV Insertion Adult [OM.PC] Stat 08/02/20 08:38 Peripheral IV Care [RC] . DIRECTED 08/02/20 09:43 Sodium Chloride 0.9% [Saline Flush] 10 ml FLUSH ONETIME PRN 08/02/20 09:45 Sodium Chloride 0.9% [Normal Saline] 100 ml IV ASDIRECTED - Assessment/Plan Last 24 Hours: My Active Orders 08/02/20 08:37 Cardiac Monitoring [RC] . DIRECTED EKG Documentation Completion [RC] STAT Sodium Chloride 0.9% [Saline Flush] 10 ml FLUSH ASDIRECTED PRN Peripheral IV Insertion Adult [OM.PC] Stat 08/02/20 08:38 Peripheral IV Care [RC] . DIRECTED 08/02/20 09:43 Sodium Chloride 0.9% [Saline Flush] 10 ml FLUSH ONETIME PRN 08/02/20 09:45 Sodium Chloride 0.9% [Normal Saline] 100 ml IV ASDIRECTED
--- NOTE | 2020-08-02 10:29 | CT ---
CT chest Technique: Multiple axial sections through the chest were obtained. Study was performed as a pulmonary angiogram protocol and intravenous contrast was utilized. Comparison: Prior chest x-ray of 03/12/20 Findings: Pulmonary arteries are well opacified. No filling defects are seen to indicate pulmonary embolism. Thoracic aorta shows no aneurysm. No pericardial thickening is seen. Small portion of the visualized upper abdominal structures shows no discrete abnormality. Mild coronary artery calcification is seen. Lungs are clear with no acute parenchymal change being seen. Bone window settings were reviewed which show scattered degenerative change within the spine. No acute osseous abnormality is appreciated. Impression: 1. No findings of pulmonary embolism. 2. No etiology is seen to explain the patient's hemoptysis. Diagnostic code #2
== END 2020-08-02 11:06 | disposition home or self-care (01) ==
LOC: JD.ED 08:19
DX: R04.2 Hemoptysis (principal); E78.00 Pure hypercholesterolemia, unspecified; Z91.048 Other nonmedicinal substance allergy status; Z79.899 Other long term (current) drug therapy; Z20.822 Contact with and (suspected) exposure to COVID-19
CPT/HCPCS: 36415; 71275; 80053; 84484; 85025; 85379; 85610; 85730; 86140; 93005; 99284; Q9967; U0002; 93010

== ENCOUNTER 2021-03-17 22:50 | Emergency (ER) | payer MEDICARE, OTHER ==
[2021-03-18 03:31] VITALS: BP 145/76; PULSE 55
== END 2021-03-18 03:15 | disposition home or self-care (01) ==
LOC: JD.ED 22:50
DX: R73.9 Hyperglycemia, unspecified (principal); F43.9 Reaction to severe stress, unspecified; F93.9 Childhood emotional disorder, unspecified; E78.00 Pure hypercholesterolemia, unspecified; E66.9 Obesity, unspecified; Z68.30 Body mass index [BMI] 30.0-30.9, adult; Z79.01 Long term (current) use of anticoagulants; Z79.899 Other long term (current) drug therapy; Z91.018 Allergy to other foods; Z87.891 Personal history of nicotine dependence
CPT/HCPCS: 36415; 71045; 71045-26; 80053; 83735; 84484; 85025; 85379; 85610; 93005; 99285-25

== ENCOUNTER 2021-05-11 01:58 | Emergency (ER) | payer MEDICARE, OTHER ==
[2021-05-11 02:51] VITALS: BP 147/71; PULSE 47
== END 2021-05-11 02:47 | disposition home or self-care (01) ==
LOC: JD.ED 01:58
DX: R03.0 Elevated blood-pressure reading, without diagnosis of hypertension (principal); E78.00 Pure hypercholesterolemia, unspecified; E66.9 Obesity, unspecified; Z68.29 Body mass index [BMI] 29.0-29.9, adult; Z88.8 Allergy status to other drugs, medicaments and biological substances; Z79.899 Other long term (current) drug therapy; Z79.01 Long term (current) use of anticoagulants; Z87.891 Personal history of nicotine dependence
CPT/HCPCS: 99283

== ENCOUNTER 2021-06-04 11:34 | Emergency (ER) | payer MEDICARE, OTHER ==
[2021-06-04] MEDS ORDERED: Sodium Chloride 0.9% 10 ML Syringe FLUSH PRN ×2 (12:14→14:05)
[2021-06-04] MEDS ORDERED: Iopamidol 755 Mg/ML 100 ML Bottle IVPUSH ONE (14:05)
[2021-06-04] MEDS ORDERED: Sodium Chloride 0.9% 100 ML IV SCH (14:15)
[2021-06-04 16:37] VITALS: BP 165/79; PULSE 44
== END 2021-06-04 16:10 ==
LOC: JD.ED 11:34
DX: R00.1 Bradycardia, unspecified (principal); E78.00 Pure hypercholesterolemia, unspecified; F41.9 Anxiety disorder, unspecified; M19.90 Unspecified osteoarthritis, unspecified site; E66.9 Obesity, unspecified; Z68.29 Body mass index [BMI] 29.0-29.9, adult; Z79.899 Other long term (current) drug therapy; Z20.822 Contact with and (suspected) exposure to COVID-19; Z79.82 Long term (current) use of aspirin; Z91.048 Other nonmedicinal substance allergy status
CPT/HCPCS: 36415; 71275; 84443; 84484; 85379; 93005; 99285; J3490; Q9967; U0002; 93010

== ENCOUNTER 2021-06-10 05:42 | Emergency (ER) | payer MEDICARE, OTHER ==
[2021-06-10 09:13] VITALS: BP 155/76; PULSE 44
== END 2021-06-10 09:10 ==
LOC: JD.ED 05:42
DX: R00.2 Palpitations (principal); R00.1 Bradycardia, unspecified; I10 Essential (primary) hypertension; E78.00 Pure hypercholesterolemia, unspecified; M19.90 Unspecified osteoarthritis, unspecified site; F41.9 Anxiety disorder, unspecified; E66.9 Obesity, unspecified; Z68.31 Body mass index [BMI] 31.0-31.9, adult; Z91.048 Other nonmedicinal substance allergy status; Z79.899 Other long term (current) drug therapy; Z20.822 Contact with and (suspected) exposure to COVID-19
CPT/HCPCS: 36415; 80053; 83735; 84484; 85025; 93005; 99284; U0002

== ENCOUNTER 2021-11-18 09:54 | Emergency (ER) | payer MEDICARE, OTHER ==
[2021-11-18 10:04] VITALS: BP 169/84; PULSE 59
== END 2021-11-18 13:25 | disposition home or self-care (01) ==
LOC: JD.ED 09:54
DX: M25.562 Pain in left knee (principal); E78.00 Pure hypercholesterolemia, unspecified; I10 Essential (primary) hypertension; M19.90 Unspecified osteoarthritis, unspecified site; E66.9 Obesity, unspecified; Z68.29 Body mass index [BMI] 29.0-29.9, adult; Z91.048 Other nonmedicinal substance allergy status; Z79.899 Other long term (current) drug therapy; Z79.82 Long term (current) use of aspirin; Z86.16 Personal history of COVID-19
CPT/HCPCS: 36415; 85379; 93971-26-LT; 93971-LT; 99283; 99284

== ENCOUNTER 2023-01-23 19:53 | Emergency (ER) | payer MEDICARE, OTHER ==
[2023-01-23 20:52] LABS: BASOPHILS PERCENT AUTO 0.7 % (0.0-1.0); EOSINOPHILS ABSOLUTE AUTO 0.3 K/mm3 (0.0-0.4); EOSINOPHILS PERCENT AUTO 5.3 % (0.0-6.0); HEMATOCRIT 44.1 % (42.0-52.0); IMMATURE GRAN ABSOLUTE AUTO 0.01 K/mm3 (0.00-0.05); IMMATURE GRAN PERCENT AUTO 0.2 % (0.0-0.4); LYMPHOCYTES ABSOLUTE AUTO 1.8 K/mm3 (1.0-4.8); LYMPHOCYTES PERCENT AUTO 29.1 % (24.0-44.0); MEAN CORPUSCULAR HEMOGLOBIN 32.1 pg (28.0-32.0); MEAN CORPUSCULAR VOLUME 94.4 fl (83.0-99.0); MEAN PLATELET VOLUME 9.5 fl (9.4-12.4); MONOCYTES ABSOLUTE AUTO 0.5 K/mm3 (0.0-0.8); MONOCYTES PERCENT AUTO 8.8 % (0.0-8.0); NEUTROPHILS ABSOLUTE AUTO 3.4 K/mm3 (1.8-7.7); NEUTROPHILS PERCENT AUTO 55.9 % (41.0-71.0); PLATELET COUNT,PLT 221 K/mm3 (150-400); RED BLOOD CELL COUNT 4.67 M/mm3 (4.52-5.90); WHITE BLOOD CELL COUNT,WBC 6.02 K/mm3 (3.9-11.3)
[2023-01-23 20:59] LABS: APPEARANCE,URINE SLT CLOUDY (Clear); BILIRUBIN,URINE NEGATIVE (Negative); COLOR,URINE YELLOW (Yellow); GLUCOSE,URINE TRACE (Negative); KETONES,URINE NEGATIVE (Negative); LEUKOCYTE ESTERASE,URINE NEGATIVE (Negative); NITRITE,URINE NEGATIVE (Negative); OCCULT BLOOD,URINE 2+ (Negative); PROTEIN,URINE NEGATIVE (Negative)
[2023-01-23 21:11] LABS: RBC,URINE 75-100 /hpf (0-5); WBC,URINE 0-5 /hpf (0-5)
[2023-01-23 21:12] LABS: BACTERIA,URINE FEW /hpf (FEW); MUCUS,URINE NOT SEEN /hpf (FEW); SQUAMOUS EPITHELIAL CELLS,UR 0-5 /hpf (0-5)
[2023-01-23 21:32] LABS: A/G RATIO 1.1 (1-2); ALANINE AMINOTRANSFERASE,ALT 38 U/L (16-63); ALBUMIN 3.6 g/dl (3.4-5.0); ALKALINE PHOSPHATASE 52 U/L (46-116); ANION GAP 14.8 (5-15); ASPARTATE AMNIOTRANSFERASE,AST 20 U/L (15-37); BILIRUBIN TOTAL 0.5 mg/dL (0.2-1.0); BLOOD UREA NITROGEN,BUN 19 mg/dL (7-18); BUN/CREATININE RATIO 17.3 (14-18); C-REACTIVE PROTEIN <0.2 mg/dL (<1.0); CALCIUM 8.5 mg/dL (8.5-10.1); CARBON DIOXIDE,CO2 24 mEq/L (21-32); CHLORIDE,CL 106 mEq/L (98-107); CREATININE 1.1 mg/dL (0.7-1.3); EST CRCL DRUG DOSING (CG) 64.67 mL/min; ESTIMATED GFR 70 mL/min (>60); GLUCOSE RANDOM 172 mg/dL (70-99); POTASSIUM,K 3.8 mEq/L (3.5-5.1); PROTEIN TOTAL,TP 6.9 g/dl (6.4-8.2); SODIUM,NA 141 mEq/L (136-145)
[2023-01-23 22:33] VITALS: BP 169/78; PULSE 63
== END 2023-01-23 22:32 | disposition home or self-care (01) ==
LOC: JD.ED 19:53
DX: R36.1 Hematospermia (principal); R31.29 Other microscopic hematuria; I10 Essential (primary) hypertension; M19.90 Unspecified osteoarthritis, unspecified site; E78.00 Pure hypercholesterolemia, unspecified; E66.9 Obesity, unspecified; Z68.31 Body mass index [BMI] 31.0-31.9, adult; Z79.82 Long term (current) use of aspirin; Z79.899 Other long term (current) drug therapy; Z87.891 Personal history of nicotine dependence; Z91.048 Other nonmedicinal substance allergy status; Z86.16 Personal history of COVID-19; Z90.49 Acquired absence of other specified parts of digestive tract
CPT/HCPCS: 36415; 80053; 81001; 85025; 86140; 99283; G0103

== ENCOUNTER 2023-04-14 01:11 | Emergency (ER) | payer MEDICARE, OTHER ==
[2023-04-14 01:41] LABS: APPEARANCE,URINE CLEAR (Clear); BILIRUBIN,URINE NEGATIVE (Negative); COLOR,URINE YELLOW (Yellow); GLUCOSE,URINE NEGATIVE (Negative); KETONES,URINE NEGATIVE (Negative); LEUKOCYTE ESTERASE,URINE NEGATIVE (Negative); NITRITE,URINE NEGATIVE (Negative); OCCULT BLOOD,URINE 3+ (Negative); PH,URINE 6.5 (5.0-8.0); PROTEIN,URINE NEGATIVE (Negative); UROBILINOGEN,URINE 0.2 (0.2-1.0)
[2023-04-14 01:48] LABS: BASOPHILS ABSOLUTE AUTO 0.1 K/mm3 (0.0-0.2); BASOPHILS PERCENT AUTO 0.8 % (0.0-1.0); EOSINOPHILS ABSOLUTE AUTO 0.2 K/mm3 (0.0-0.4); EOSINOPHILS PERCENT AUTO 3.9 % (0.0-6.0); HEMATOCRIT 42.9 % (42.0-52.0); HEMOGLOBIN 14.8 gm/dl (14.0-18.0); IMMATURE GRAN ABSOLUTE AUTO 0.01 K/mm3 (0.00-0.05); IMMATURE GRAN PERCENT AUTO 0.2 % (0.0-0.4); LYMPHOCYTES ABSOLUTE AUTO 2.2 K/mm3 (1.0-4.8); LYMPHOCYTES PERCENT AUTO 37.7 % (24.0-44.0); MEAN CORPUSCULAR HEMOGLOBIN 32.5 pg (28.0-32.0); MEAN CORPUSCULAR HGB CONC 34.5 g/dl (32.0-36.0); MEAN CORPUSCULAR VOLUME 94.3 fl (83.0-99.0); MEAN PLATELET VOLUME 9.3 fl (9.4-12.4); MONOCYTES ABSOLUTE AUTO 0.5 K/mm3 (0.0-0.8); MONOCYTES PERCENT AUTO 8.8 % (0.0-8.0); NEUTROPHILS ABSOLUTE AUTO 2.9 K/mm3 (1.8-7.7); NEUTROPHILS PERCENT AUTO 48.6 % (41.0-71.0); PLATELET COUNT,PLT 230 K/mm3 (150-400); RED BLOOD CELL COUNT 4.55 M/mm3 (4.52-5.90); WHITE BLOOD CELL COUNT,WBC 5.89 K/mm3 (3.9-11.3)
[2023-04-14 01:53] LABS: BACTERIA,URINE NOT SEEN /hpf (FEW); EPITHELIAL CELLS,URINE 0-5 /hpf (0-5); MUCUS,URINE NOT SEEN /hpf (FEW); RBC,URINE >100 /hpf (0-5); WBC,URINE 0-5 /hpf (0-5)
[2023-04-14 02:10] LABS: A/G RATIO 1.1 (1-2); ALBUMIN 3.6 g/dl (3.4-5.0); ANION GAP 13.5 (5-15); BILIRUBIN TOTAL 0.5 mg/dL (0.2-1.0); CALCIUM 8.6 mg/dL (8.5-10.1); CREATININE 1.2 mg/dL (0.7-1.3); EST CRCL DRUG DOSING (CG) 59.28 mL/min; POTASSIUM,K 3.5 mEq/L (3.5-5.1); PROTEIN TOTAL,TP 6.8 g/dl (6.4-8.2)
[2023-04-14 02:37] VITALS: BP 139/69; PULSE 64
== END 2023-04-14 02:30 | disposition home or self-care (01) ==
LOC: JD.ED 01:11
DX: N02.9 Recurrent and persistent hematuria with unspecified morphologic changes (principal); I10 Essential (primary) hypertension; E78.00 Pure hypercholesterolemia, unspecified; E66.9 Obesity, unspecified; Z68.31 Body mass index [BMI] 31.0-31.9, adult; Z79.82 Long term (current) use of aspirin; Z79.01 Long term (current) use of anticoagulants; Z79.899 Other long term (current) drug therapy; Z91.048 Other nonmedicinal substance allergy status; Z86.16 Personal history of COVID-19
CPT/HCPCS: 36415; 80053; 81001; 85025; 99283

== ENCOUNTER 2024-03-29 10:06 | Emergency (ER) | payer MEDICARE ==
[2024-03-29 10:21] VITALS: PULSE 50
[2024-03-29 10:30] VITALS: BP 152/81
[2024-03-29 11:22] LABS: BASOPHILS PERCENT AUTO 0.5 % (0.0-1.0); EOSINOPHILS ABSOLUTE AUTO 0.2 K/mm3 (0.0-0.4); EOSINOPHILS PERCENT AUTO 2.9 % (0.0-6.0); IMMATURE GRAN ABSOLUTE AUTO 0.02 K/mm3 (0.00-0.05); IMMATURE GRAN PERCENT AUTO 0.3 % (0.0-0.4); LYMPHOCYTES ABSOLUTE AUTO 1.5 K/mm3 (1.0-4.8); LYMPHOCYTES PERCENT AUTO 24.6 % (24.0-44.0); MEAN CORPUSCULAR HGB CONC 34.2 g/dl (32.0-36.0); MEAN CORPUSCULAR VOLUME 93.8 fl (83.0-99.0); MEAN PLATELET VOLUME 9.5 fl (9.4-12.4); MONOCYTES ABSOLUTE AUTO 0.4 K/mm3 (0.0-0.8); MONOCYTES PERCENT AUTO 7.1 % (0.0-8.0); NEUTROPHILS PERCENT AUTO 64.6 % (41.0-71.0); PLATELET COUNT,PLT 217 K/mm3 (150-400); RED BLOOD CELL COUNT 5.12 M/mm3 (4.52-5.90); WHITE BLOOD CELL COUNT,WBC 6.18 K/mm3 (3.9-11.3)
[2024-03-29 11:27] LABS: HEMOGLOBIN 16.4 gm/dl (14.0-18.0)
[2024-03-29 11:44] LABS: A/G RATIO 1.1 (1-2); ANION GAP 10.1 (5-15); BILIRUBIN TOTAL 0.9 mg/dL (0.2-1.0); BUN/CREATININE RATIO 16.7 (14-18); CALCIUM 8.8 mg/dL (8.5-10.1); CREATININE 1.2 mg/dL (0.7-1.3); EST CRCL DRUG DOSING (CG) 54.92 mL/min; POTASSIUM,K 4.1 mEq/L (3.5-5.1); PROTEIN TOTAL,TP 7.6 g/dl (6.4-8.2)
[2024-03-29 11:44] LABS: APPEARANCE,URINE CLEAR (Clear); BILIRUBIN,URINE NEGATIVE (Negative); COLOR,URINE LIGHT YELLOW (Yellow); GLUCOSE,URINE NEGATIVE (Negative); KETONES,URINE NEGATIVE (Negative); LEUKOCYTE ESTERASE,URINE NEGATIVE (Negative); NITRITE,URINE NEGATIVE (Negative); OCCULT BLOOD,URINE NEGATIVE (Negative); PROTEIN,URINE NEGATIVE (Negative); UROBILINOGEN,URINE 0.2 (0.2-1.0)
== END 2024-03-29 15:00 | disposition home or self-care (01) ==
LOC: JD.ED 10:06
DX: I10 Essential (primary) hypertension (principal); E87.8 Other disorders of electrolyte and fluid balance, not elsewhere classified; R25.1 Tremor, unspecified; E78.00 Pure hypercholesterolemia, unspecified; M19.90 Unspecified osteoarthritis, unspecified site; E66.9 Obesity, unspecified; Z68.33 Body mass index [BMI] 33.0-33.9, adult; Z86.16 Personal history of COVID-19; Z90.49 Acquired absence of other specified parts of digestive tract; Z88.8 Allergy status to other drugs, medicaments and biological substances; Z79.82 Long term (current) use of aspirin; Z79.899 Other long term (current) drug therapy
CPT/HCPCS: 36415; 70450; 70450-26; 71045; 71045-26; 80053; 81003; 84484; 85025; 93005; 99284

== ENCOUNTER 2024-05-07 14:26 | Emergency (ER) | payer MEDICARE ==
[2024-05-07] MEDS: Orphenadrine 60 MG/2 ML Inj IM ONE (16:58)
[2024-05-07] MEDS: Ketorolac 60 MG/2 ML SDV IM ONE (16:58)
[2024-05-07] MEDS: predniSONE 20 MG Tab PO ONE (16:58)
[2024-05-07 19:03] VITALS: BP 140/74; PULSE 49
== END 2024-05-07 18:42 | disposition home or self-care (01) ==
LOC: JD.ED 14:26
DX: M54.50 Low back pain, unspecified (principal); I10 Essential (primary) hypertension; E78.00 Pure hypercholesterolemia, unspecified; Z91.048 Other nonmedicinal substance allergy status; Z79.899 Other long term (current) drug therapy; Z79.82 Long term (current) use of aspirin; Z86.16 Personal history of COVID-19
CPT/HCPCS: 96372; 99283; J1885; J2360; J7512